=== PATIENT | female | born 1970 | race Caucasian/White ===

== ENCOUNTER 2016-09-22 22:03 | Emergency (ER) | payer BC ==
[~2016-09-22] VITALS: Ht 172.7 cm; Wt 66.9 kg
[2016-09-22 22:48] LABS: CHLORIDE 106 mEq/L (99-109); POTASSIUM 3.8 mEq/L (3.7-5.4); SODIUM 138 mEq/L (136-147)
[2016-09-22] MEDS ORDERED: LEVOTHYROXINE50 MCG PO (22:49)
[2016-09-22 22:50] LABS: GLUCOSE 94 mg/dL (70-99)
[2016-09-22 22:51] LABS: ANION GAP 10 MEQ/L (2-14)
[2016-09-22 22:52] LABS: TOTAL BILIRUBIN 0.4 mg/dL (0.0-1.0)
[2016-09-22 22:53] LABS: ALKALINE PHOSPHATASE 62 IU/L (3-129)
[2016-09-22 22:54] LABS: GFR ESTIMATE (CALCULATED) > 59 mL/min/
[2016-09-22 22:55] LABS: UREA NITROGEN (BUN) 12 mg/dL (9-23)
[2016-09-22 22:57] LABS: LIPASE 52 U/L (1.0-51.0)
[2016-09-22 23:04] LABS: QUANTITATIVE HCG < 4.0 MIU/ML
[2016-09-23 00:03] LABS: HEMATOCRIT 36.2 % (36.0-46.0); MCH 29.4 PG (29.0-34.0); MCHC 33.1 G/DL (30.0-36.0); MCV 88.7 FL (83-99); MEAN PLAT.VOLUME 10.4 uM^3 (9.5-12.4); PLATELET COUNT 257 K/uL (156-360); RBC DIS.WIDTH-CV 12.2 % (11.8-14.6); RBC DIS.WIDTH-SD 39.8 % (39-53); RED BLOOD COUNT 4.08 M/uL (3.80-5.20); WHITE BLOOD COUNT 10.9 K/uL (4.1-10.2)
[2016-09-23 00:31] LABS: ADD MIUA? YES; BILIRUBIN NEGATIVE; BLOOD LARGE; COLOR STRAW ((YELLOW)); GLUCOSE (STRIP) NEGATIVE; KETONES NEGATIVE; LEUKOCYTES NEGATIVE; NITRITE NEGATIVE; PROTEIN (STRIP) NEGATIVE; SPECIFIC GRAVITY 1.004 (1.000-1.030); UROBILINOGEN 0.2 MG/DL (0.2-1.0)
[2016-09-23 00:37] LABS: BACTERIA RARE /HPF; EPITHELIAL CELLS RARE /HPF; MUCUS NONE SEEN /LPF; RED BLOOD CELLS 0-5 /HPF (0-5); UCUL ADDED? NO; WHITE BLOOD CELLS 0-5 /HPF (0-5)
[2016-09-23] MEDS ORDERED: TORADOL10 MG PO (02:48)
[2016-09-23] MEDS ORDERED: PERCOCET 5/31 TABLET PO (02:48)
[2016-09-23] MEDS ORDERED: ZOFRAN ODT4 MG PO (02:48)
[2016-09-23 03:03] VITALS: BP 98/72
[2016-09-23 11:37] LABS: CHLAMYDIA TRACHOMATIS NEGATIVE; NEISSERIA GONORRHOEAE NEGATIVE
== END 2016-09-23 03:08 | disposition home or self-care (01) ==
LOC: EME 22:03
PROVIDERS: Nurse Practitioner Family
DX: R10.11 Right upper quadrant pain (principal); R11.0 Nausea; Z88.0 Allergy status to penicillin
CPT/HCPCS: 74177; 80053; 81003; 83690; 84702; 85027; 87070; 87077; 87186; 87210; 87491; 87591; 99281; 99285; J1885; J2405; J7030

== ENCOUNTER 2016-11-04 05:32 | Day surgery (SDC) | payer BC ==
[~2016-11-04] VITALS: Ht 172.7 cm; Wt 66.0 kg
[~2016-11-04 05:32] MED LIST: LEVOTHYROXINE50 MCG PO; PERCOCET 5/31 TABLET PO; PROBIOTIC1 EAC2 PO; TORADOL10 MG PO; WOMEN'S DAILY1 EAC4 PO; ZOFRAN ODT4 MG PO
[2016-11-04 06:15] VITALS: BP 104/55
[2016-11-04] MEDS ORDERED: ENDOCET 5-3251 EACH PO (08:51)
[2016-11-04 10:05] VITALS: BP 104/62
[2016-11-04 10:58] VITALS: BP 97/59
[2016-11-04 12:38] VITALS: BP 112/68
== END 2016-11-04 12:51 | disposition home or self-care (01) ==
LOC: SDC 05:32
DX: D25.1 Intramural leiomyoma of uterus (principal); N94.6 Dysmenorrhea, unspecified; N92.1 Excessive and frequent menstruation with irregular cycle; N94.10 Unspecified dyspareunia; N83.8 Other noninflammatory disorders of ovary, fallopian tube and broad ligament; N72 Inflammatory disease of cervix uteri; E03.9 Hypothyroidism, unspecified; Z88.0 Allergy status to penicillin; Z80.41 Family history of malignant neoplasm of ovary
CPT/HCPCS: 88307; J0131; J1100; J1170; J1580; J1885; J2175; J2250; J2405; J2710; J3010; J7050